=== PATIENT | male | born 1990 | race African-American/Black ===

== ENCOUNTER 2017-04-18 21:48 | Emergency (ER) | payer MEDICAID, OTHER ==
[~2017-04-18] VITALS: Ht 180.3 cm; Wt 77.1 kg
[~2017-04-18 21:48] MED LIST: NKM; PREDNISONE50 MG ORAL; TYLENOL EXTRA500 MG ORAL
[2017-04-18 22:05] VITALS: BP 122/82
[2017-04-18 22:18] LABS: BILIRUBIN, URINE NEGATIVE (NEGATIVE); GLUCOSE, URINE (UA) NEGATIVE (NEGATIVE); KETONES,URINE 1+ (NEGATIVE); LEUKOCYTE ESTERASE ,URINE 2+ (NEGATIVE); NITRITE,URINE NEGATIVE (NEGATIVE); PH,URINE 5 (4.5-8.0); PROTEIN,URINE 1+ (NEGATIVE); UROBILINOGEN,URINE 1 MG/DL (0.0-1.0)
[2017-04-18 22:20] LABS: APPEARANCE,URINE SLIGHTLY CLOUDY; COLOR,URINE YELLOW
[2017-04-18] MEDS ORDERED: KEFLEX500 MG ORAL (22:34)
[2017-04-18 22:50] VITALS: BP 120/78
--- NOTE | 2017-04-19 | Emergency Room Report ---
History of Present Illness General Chief Complaint: Male Urogenital Problems Source: Patient Present Illness HPI 26-year-old male, presenting with dysuria for 2 days. Burning on urination, frequency. Denies any penile discharge. Sexually active but states that he used protection. Denies possibility of having STD Allergies: Coded Allergies: No Known Allergies (Unverified , 02/10/14) Patient History Past Medical History: see triage record Past Surgical History: none Pertinent Family History: none Reviewed Nursing Documentation: PMH: Agreed, PSxH: Agreed Nursing Documentation-PMH Past Medical History: No Stated History Review of Systems All Other Systems: negative except mentioned in HPI Physical Exam Vital Signs Date Time Temp Pulse Resp B/P (MAP) Pulse Ox O2 Delivery O2 Flow Rate FiO2 04/18/17 21:57 97.9 66 18 128/84 96 Room Air Sp02 EP Interpretation: reviewed, normal General Appearance: normal inspection, well appearing, no apparent distress, alert, GCS 15, non-toxic Head: normocephalic, atraumatic Eyes: bilateral eye normal inspection, bilateral eye PERRL, bilateral eye EOMI ENT: normal ENT inspection, normal pharynx, normal voice, moist mucus membranes Neck: normal inspection, full range of motion, supple Respiratory: normal inspection, lungs clear, normal breath sounds, no respiratory distress, no retraction, no wheezing, speaking full sentences, chest symmetrical Cardiovascular #1: normal inspection, regular rate, rhythm, no edema, normal capillary refill Cardiovascular #2: 2+ radial (R), 2+ radial (L) Gastrointestinal: normal inspection, non tender, soft, non-distended, no guarding Genitourinary: no CVA tenderness Musculoskeletal: normal inspection, back normal, normal range of motion, non- tender Neurologic: normal inspection, alert, oriented x3, responsive, motor strength/ tone normal, sensory intact, normal gait, speech normal Psychiatric: normal inspection, judgement/insight normal, memory normal Skin: normal inspection, normal color, no rash, warm/dry, well hydrated, normal turgor Medical Decision Making Diagnostic Impression: Primary Impression: UTI (urinary tract infection) ER Course 26-year-old male with dysuria DDX: UTI / cystitis vs. pyelo vs STD Plan: UA, UCX ER course: Pt remains stable/nontoxic appearing in ED. UA positive Patient also educated that if he takes antibiotics and he is still experiencing symptoms, to see his primary care doctor for STD testing. I offered empiric antibiotics for treatment however patient declined Disposition: Patient will be discharged home with prescription of antibiotics. Strict return precautions to discussed with patient such as high fever, chills, abdominal pain, nausea or vomiting. Patient verbalized understanding. Patient instructed to follow up with primary care doctor within 3 days. Patient agrees with plan. Please note that this Emergency Department Report was dictated using Mapplasprincipal technical specialist technology software, occasionally this can lead to erroneous entry secondary to interpretation by the dictation equipment Last Vital Signs Date Time Temp Pulse Resp B/P (MAP) Pulse Ox O2 Delivery O2 Flow Rate FiO2 04/18/17 22:50 97.6 74 17 120/78 99 Room Air Disposition: HOME, SELF-CARE Condition: Stable Scripts Cephalexin* (KEFLEX*) 500 Mg Capsule 500 MG ORAL Q6H, #28 CAP 0 Refills Prov: Hudson Jimenez M.D. 04/18/17 Referrals: NOT CHOSEN IPA/,REFERRING (PCP) Patient Instructions: Urinary Tract Infection Additional Instructions: PLEASE FOLLOW UP WITH YOUR DOCTOR IN 5 DAYS Hudson Jimenez M.D. Apr 19, 2017 00:00
== END 2017-04-18 22:50 | disposition home or self-care (01) ==
LOC: EMR 22:00
DX: N39.0 Urinary tract infection, site not specified (principal)
CPT/HCPCS: 81003; 87086; 99283

== ENCOUNTER 2017-07-05 22:47 | Emergency (ER) | payer SELFPAY ==
[~2017-07-05] VITALS: Ht 180.3 cm; Wt 74.8 kg
[~2017-07-05 22:47] MED LIST changes: +KEFLEX500 MG ORAL
[2017-07-05] MEDS ORDERED: LORazepam Inj 2mg/ml 1ml IM ONE (23:45)
[2017-07-05] MEDS ORDERED: ATIVAN1 MG ORAL (23:59)
--- NOTE | 2017-07-06 | Emergency Room Report ---
History of Present Illness General Chief Complaint: General Complaint Source: Patient Present Illness HPI Is a 26-year-old male with a history of anxiety/panic attack when he was younger. He was on medication for it. He hasn't been on medication for several years now. He has been able to manage it without any problem. He said his panic attacks been on coming more frequently and especially today he had about 10 of them already. [place] numbness to his whole body. No suicidal thought homicidal thought. Denies any other drug use other than marijuana. Allergies: Coded Allergies: No Known Allergies (Unverified , 02/10/14) Patient History Past Medical History: see triage record, old chart reviewed, psych hx Past Surgical History: none Pertinent Family History: none Social History: Denies: smoking Immunizations: other Reviewed Nursing Documentation: PMH: Agreed; PSxH: Agreed Nursing Documentation-PMH Past Medical History: No Stated History Review of Systems Eye: Denies: eye pain, blurred vision ENT: Denies: ear pain, nose congestion, throat swelling Respiratory: Denies: cough, shortness of breath Cardiovascular: Denies: chest pain, palpitations Gastrointestinal: Denies: abdominal pain, diarrhea, nausea, vomiting Musculoskeletal: Denies: back pain, joint pain Skin: Denies: rash Neurological: Denies: headache, numbness Endocrine: Denies: increased thirst, increased urine Hematologic/Lymphatic: Denies: easy bruising All Other Systems: negative except mentioned in HPI Physical Exam Vital Signs Date Time Temp Pulse Resp B/P (MAP) Pulse Ox O2 Delivery O2 Flow Rate FiO2 07/05/17 22:59 98.0 74 18 149/97 100 Room Air 98.1 vitals normal Sp02 EP Interpretation: reviewed, normal General Appearance: well appearing, no apparent distress, alert Head: normocephalic, atraumatic Eyes: bilateral eye PERRL, bilateral eye EOMI ENT: hearing grossly normal, normal pharynx Neck: full range of motion, supple, no meningismus Respiratory: chest non-tender, lungs clear, normal breath sounds Cardiovascular #1: regular rate, rhythm, no murmur Gastrointestinal: normal bowel sounds, non tender, no mass, no organomegaly, no bruit, non-distended Musculoskeletal: back normal, gait/station normal, normal range of motion Psychiatric: mood/affect normal Skin: warm/dry Medical Decision Making Diagnostic Impression: Primary Impression: Generalized anxiety disorder with panic attacks ER Course Patient with panic attacks. Not suicidal homicidal. We'll refer to mental health. Last Vital Signs Date Time Temp Pulse Resp B/P (MAP) Pulse Ox O2 Delivery O2 Flow Rate FiO2 07/05/17 22:59 98.0 74 18 149/97 100 Room Air 98.1 Status: improved Disposition: HOME, SELF-CARE Condition: Stable Scripts Lorazepam* (ATIVAN*) 1 Mg Tablet 1 MG ORAL THREE TIMES A DAY, #20 TAB Prov: ATILIO TALAMANTES M.D. 07/05/17 Additional Instructions: Follow-up with mental health within 7 days. Return if symptom worsen. ATILIO TALAMANTES M.D. Jul 06, 2017 00:00
[2017-07-06 00:06] VITALS: BP 149/97
== END 2017-07-06 00:30 | disposition home or self-care (01) ==
LOC: EMR 07-06 00:26
DX: F41.1 Generalized anxiety disorder (principal); F41.0 Panic disorder [episodic paroxysmal anxiety]
CPT/HCPCS: 96372; 99283

== ENCOUNTER 2018-10-10 13:29 | Emergency (ER) | payer MEDICAID ==
[~2018-10-10] VITALS: Ht 182.9 cm; Wt 79.4 kg
[~2018-10-10 13:29] MED LIST changes: +ATIVAN1 MG ORAL
[2018-10-10 13:35] VITALS: BP 137/84
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
--- NOTE | 2018-10-10 14:04 | Diagnostic Imaging Report ---
Indication: pain in finger. trauma Findings: 3 views of the right second third fingers were obtained. No acute fractures, malalignment, erosions, or periosteal reaction are seen. Soft tissues are unremarkable. Impression: No acute findings.
--- NOTE | 2018-10-10 14:18 | NUR ---
ED Nurse Note: dressing applied as ordered by CASH APPLICATION REPRESENTATIVE STAR
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
[2018-10-10] MEDS ORDERED: AUGMENTIN 875-1 EAC1 ORAL (14:29)
[2018-10-10] MEDS ORDERED: IBU800 MG PO (14:29)
--- NOTE | 2018-10-10 14:33 | Diagnostic Imaging Report ---
Indication: Left leg pain Comparison: None Findings: Two views of the left tibia and fibula were obtained. There are healed fractures in the mid shaft of the tibia and fibula. Intramedullary ranjana and proximal and distal interlocking screws are noted. The proximal screw is fractured at the level of the ranjana. No acute fracture is identified. IMPRESSION: No acute injury identified
[2018-10-10 14:35] VITALS: BP 137/84
--- NOTE | 2018-10-10 14:35 | NUR ---
ER DISCHARGE NOTE: Patient is cleared to be discharged per AGUSTIN MCKENZIE, pt is aox4, on room air, with stable vital signs. pt was given dc and prescription instructions, pt was able to verbalize understanding, pt id band and removed without complications. pt is able to ambulate with steady gait. pt took all belongings.
== END 2018-10-10 14:35 | disposition home or self-care (01) ==
LOC: EMR 14:25
DX: S61.250A Open bite of right index finger without damage to nail, initial encounter (principal); W50.3XXA Accidental bite by another person, initial encounter; Y92.9 Unspecified place or not applicable; S80.12XA Contusion of left lower leg, initial encounter
CPT/HCPCS: 29130; 99284

== ENCOUNTER 2019-06-19 16:47 | Emergency (ER) | payer MEDICAID ==
[~2019-06-19] VITALS: Ht 185.4 cm; Wt 79.4 kg
[~2019-06-19 16:47] MED LIST changes: +AUGMENTIN 875-1 EAC1 ORAL; +IBU800 MG PO
--- NOTE | 2019-06-19 17:18 | NUR ---
ED Nurse Note: pt walked in to ED for C/O blood in stool x 3 days. denies any abd pain, n/v. pt is alert x4.
[2019-06-19 17:19] VITALS: BP 118/70
--- NOTE | 2019-06-19 17:37 | NUR ---
ED Nurse Note: blood sample collected and sent to lab .
[2019-06-19 18:12] LABS: BASOPHILS % (AUTO) 1.2 % (0.0-2.0); EOSINOPHILS % (AUTO) 1.1 % (0.0-3.0); HEMATOCRIT 49.2 % (42.0-52.0); HEMOGLOBIN 15.5 G/DL (14.2-18.0); LYMPHOCYTES % (AUTO) 40.9 % (20.0-45.0); MEAN CORPUSCULAR VOLUME 88 FL (80-99); MONOCYTES % (AUTO) 6.5 % (1.0-10.0); NEUTROPHILS % (AUTO) 50.3 % (45.0-75.0); PLATELET COUNT 190 K/UL (150-450); RED CELL DISTRIBUTION WIDTH 13.7 % (11.6-14.8); WHITE BLOOD COUNT 7.6 K/UL (4.8-10.8)
[2019-06-19 18:20] LABS: ANION GAP 9 mmol/L (5-15); BLOOD UREA NITROGEN 7 mg/dL (7-18); CALCIUM 9.3 MG/DL (8.5-10.1); CARBON DIOXIDE 28 MMOL/L (21-32); CHLORIDE 103 MMOL/L (98-107); CREATININE 1.1 MG/DL (0.55-1.30); POTASSIUM 3.7 MMOL/L (3.5-5.1); SODIUM 140 MMOL/L (136-145)
[2019-06-19 18:32] LABS: ALANINE AMINOTRANSFERASE 19 U/L (12-78); ALBUMIN 4.3 G/DL (3.4-5.0); ALBUMIN/GLOBULIN RATIO 1.3 (1.0-2.7); ALKALINE PHOSPHATASE 85 U/L (46-116); ASPARTATE AMINO TRANSFERASE 16 U/L (15-37); BILIRUBIN,TOTAL 0.3 MG/DL (0.2-1.0)
--- NOTE | 2019-06-19 18:48 | Emergency Room Report ---
History of Present Illness General Chief Complaint: General Complaint Source: Patient Present Illness HPI 28-year-old male presents to the emergency department complaining of painless bright red blood per rectum x3 days. Patient reports he noticed his blood in the toilet after he has a bowel movement. He denies constipation or diarrhea. Patient denies eating any red vegetables. Patient denies history of blood dyscrasia or anemia. Patient reports history of hemorrhoids in the past but states that he examined himself at home and did not visualize any hemorrhoids at this time. Patient denies any foreign body insertion/rectal intercourse. He denies history of colon cancer/cancers. Does report familial history of cancer but states it was not: Related. He denies significant changes of weight loss or gain unintentionally, night sweats or changes in appetite. He reports this is his first time experiencing blood in the stool. He denies abdominal pain or tenderness. Denies nausea or vomiting. Denies NSAID use. No other aggravating or relieving factors at this time. Allergies: Coded Allergies: No Known Allergies (Unverified , 02/10/14) COVID-19 Screening Contact w/high risk pt: No Recent Travel to affected area: No Experienced COVID-19 symptoms?: No Patient History Past Surgical History: none Pertinent Family History: none Reviewed Nursing Documentation: PMH: Agreed; PSxH: Agreed Nursing Documentation-PMH Past Medical History: No Stated History Review of Systems All Other Systems: negative except mentioned in HPI Physical Exam Vital Signs Date Time Temp Pulse Resp B/P (MAP) Pulse Ox O2 Delivery O2 Flow Rate FiO2 06/19/19 17:10 98.8 94 20 117/74 (88) 95 Room Air Sp02 EP Interpretation: reviewed, normal General Appearance: no apparent distress, alert, GCS 15, non-toxic Head: normocephalic, atraumatic Eyes: bilateral eye normal inspection, bilateral eye PERRL ENT: hearing grossly normal, normal voice Neck: full range of motion Respiratory: lungs clear, normal breath sounds, speaking full sentences Cardiovascular #1: regular rate, rhythm Gastrointestinal: normal bowel sounds, non tender, soft, non-distended, no guarding Rectal: heme positive stool, other - no visible hemorrhoids or tears/fissures. Genitourinary: normal inspection, no CVA tenderness Musculoskeletal: normal range of motion, gait/station normal, non-tender Neurologic: alert, motor strength/tone normal, oriented x3, sensory intact, responsive, speech normal Psychiatric: judgement/insight normal Skin: no rash, normal color, normal inspection Lymphatic: no adenopathy Medical Decision Making PA Attestation Dr. Ribeiro is my supervising Physician whom patient management has been discussed with. Diagnostic Impression: Primary Impression: Hematochezia ER Course 28-year-old male presents to the emergency department complaining of painless bright red blood per rectum x3 days. Patient reports he noticed his blood in the toilet after he has a bowel movement. He denies constipation or diarrhea. Patient denies eating any red vegetables. Patient denies history of blood dyscrasia or anemia. Patient reports history of hemorrhoids in the past but states that he examined himself at home and did not visualize any hemorrhoids at this time. Patient denies any foreign body insertion/rectal intercourse. He denies history of colon cancer/cancers. Does report familial history of cancer but states it was not: Related. He denies significant changes of weight loss or gain unintentionally, night sweats or changes in appetite. He reports this is his first time experiencing blood in the stool. He denies abdominal pain or tenderness. Denies nausea or vomiting. Denies NSAID use. No other aggravating or relieving factors at this time. Ddx considered but are not limited to constipatio , anal fissure, perianal abscess,cancer, rectal wall tear, thrombosed hemorrhoid, hemorrhoid. Vital signs: are WNL, pt. is afebrile H&PE are most consistent with hemorrhoid , secondary to straining/ constipation. bowl sounds are normo active. ORDERS: Under quite at this time ED INTERVENTIONS: - Discussed the patient's self care interventions for hemorrhoids DISCHARGE: At this time pt. is stable for d/c to home. Will provide printed patient care instructions, and any necessary prescriptions. Care plan and follow up instructions have been discussed with the patient prior to discharge. Labs Test 06/19/19 17:33 White Blood Count 7.6 K/UL (4.8-10.8) Red Blood Count 5.60 M/UL (4.70-6.10) Hemoglobin 15.5 G/DL (14.2-18.0) Hematocrit 49.2 % (42.0-52.0) Mean Corpuscular Volume 88 FL (80-99) Mean Corpuscular Hemoglobin 27.7 PG (27.0-31.0) Mean Corpuscular Hemoglobin Concent 31.5 G/DL (32.0-36.0) Red Cell Distribution Width 13.7 % (11.6-14.8) Platelet Count 190 K/UL (150-450) Mean Platelet Volume 8.7 FL (6.5-10.1) Neutrophils (%) (Auto) 50.3 % (45.0-75.0) Lymphocytes (%) (Auto) 40.9 % (20.0-45.0) Monocytes (%) (Auto) 6.5 % (1.0-10.0) Eosinophils (%) (Auto) 1.1 % (0.0-3.0) Basophils (%) (Auto) 1.2 % (0.0-2.0) Sodium Level 140 MMOL/L (136-145) Potassium Level 3.7 MMOL/L (3.5-5.1) Chloride Level 103 MMOL/L (98-107) Carbon Dioxide Level 28 MMOL/L (21-32) Anion Gap 9 mmol/L (5-15) Blood Urea Nitrogen 7 mg/dL (7-18) Creatinine 1.1 MG/DL (0.55-1.30) Estimat Glomerular Filtration Rate > 60 mL/min (>60) Glucose Level 82 MG/DL (74-106) Calcium Level 9.3 MG/DL (8.5-10.1) Total Bilirubin 0.3 MG/DL (0.2-1.0) Aspartate Amino Transf (AST/SGOT) 16 U/L (15-37) Alanine Aminotransferase (ALT/SGPT) 19 U/L (12-78) Alkaline Phosphatase 85 U/L (46-116) Total Protein 7.5 G/DL (6.4-8.2) Albumin 4.3 G/DL (3.4-5.0) Globulin 3.2 g/dL Albumin/Globulin Ratio 1.3 (1.0-2.7) Last Vital Signs Date Time Temp Pulse Resp B/P (MAP) Pulse Ox O2 Delivery O2 Flow Rate FiO2 06/19/19 17:19 88 18 Room Air 06/19/19 17:19 98.8 118/70 96 Disposition: HOME, SELF-CARE Condition: Stable Scripts Docusate Sodium* (COLACE*) 100 Mg Capsule 100 MG ORAL THREE TIMES A DAY, #30 CAP Prov: Christine Santos 06/19/19 Referrals: NON PHYSICIAN (PCP) Patient Instructions: Gastrointestinal Bleeding Additional Instructions: Take medications as directed. Follow up with a Primary Care Provider in 3-5 days, For GI Specialist follow up and possible Sigmoidoscopy to visualize site of bleeding. --Please review list of primary care clinics, if you do not already have a primary care provider Return sooner to ED if new symptoms occur, or current symptoms become worse. - Please note that this Emergency Department Report was dictated using [employer] of learning technology software, occasionally this can lead to erroneous entry secondary to interpretation by the dictation equipment. Christine Santos Jun 19, 2019 18:48
[2019-06-19 18:59] VITALS: BP 105/76
--- NOTE | 2019-06-19 18:59 | NUR ---
ED Nurse Note: pt in bed awake, no acute distress is noted. VSS as documented.
[2019-06-19] MEDS ORDERED: COLACE100 MG ORAL (19:04)
[2019-06-19 19:10] VITALS: BP 108/80
--- NOTE | 2019-06-19 19:10 | NUR ---
ER DISCHARGE NOTE: Patient is cleared to be discharged per ERMD, pt is aox4, on room air, with stable vital signs. pt was given dc and prescription instructions, pt was able to verbalize understanding, pt id band and iv site removed without complications. pt is able to ambulate with steady gait. pt took all belongings.
== END 2019-06-19 19:10 | disposition home or self-care (01) ==
LOC: EMR 17:05
DX: K92.1 Melena (principal)
CPT/HCPCS: 36415; 80053; 85025; Z7502; 99283

== ENCOUNTER 2020-03-17 10:30 | Emergency (ER) | payer MEDICAID ==
[~2020-03-17] VITALS: Ht 182.9 cm; Wt 81.6 kg
[~2020-03-17 10:30] MED LIST changes: +COLACE100 MG ORAL
[2020-03-17 10:50] VITALS: BP 125/82
--- NOTE | 2020-03-17 10:59 | NUR ---
ED Nurse Note: Pt ambulated to ED from home d/t abdominal pain on the upper region accompanied by nausea/vomiting for 2 weeks and blood in the stool onset today. Pt is AOx4, calm and cooperative to care, VSS, on RA, breathing even and unlabored, pt denies any diarrhea. placed on bed.
[2020-03-17] MEDS ORDERED: Mylanta II UD 30ml ORAL ONE (11:00)
[2020-03-17] MEDS ORDERED: Lidocaine 2% Visc 15ml soln ORAL ONE (11:00)
--- NOTE | 2020-03-17 11:38 | Diagnostic Imaging Report ---
Indication: Cough Technique: XRAY Chest 1v Comparison: None Findings: Heart size and mediastinal contours are within normal limits for AP technique. There is no focal airspace consolidation, pneumothorax or pleural effusion. Osseous structures demonstrate no acute abnormality. Impression: No radiographic evidence of acute cardiopulmonary disease.
[2020-03-17 11:43] LABS: EOSINOPHILS % (AUTO) 0.7 % (0.0-3.0); HEMATOCRIT 49.3 % (42.0-52.0); HEMOGLOBIN 17.3 G/DL (14.2-18.0); MEAN CORPUSCULAR VOLUME 85 FL (80-99); MONOCYTES % (AUTO) 5.7 % (1.0-10.0); NEUTROPHILS % (AUTO) 65.6 % (45.0-75.0); PLATELET COUNT 200 K/UL (150-450); RED BLOOD COUNT 5.83 M/UL (4.70-6.10); RED CELL DISTRIBUTION WIDTH 14.2 % (11.6-14.8); WHITE BLOOD COUNT 7.4 K/UL (4.8-10.8)
[2020-03-17 11:57] LABS: ANION GAP 5 mmol/L (5-15); BLOOD UREA NITROGEN 9 mg/dL (7-18); CALCIUM 8.8 MG/DL (8.5-10.1); CARBON DIOXIDE 28 MMOL/L (21-32); CHLORIDE 104 MMOL/L (98-107); CREATININE 1.1 MG/DL (0.55-1.30); SODIUM 137 MMOL/L (136-145)
[2020-03-17 12:01] LABS: ALANINE AMINOTRANSFERASE 31 U/L (12-78); ALBUMIN 4.1 G/DL (3.4-5.0); ALBUMIN/GLOBULIN RATIO 1.3 (1.0-2.7); ALKALINE PHOSPHATASE 91 U/L (46-116); ASPARTATE AMINO TRANSFERASE 24 U/L (15-37); BILIRUBIN,TOTAL 0.6 MG/DL (0.2-1.0)
[2020-03-17] MEDS ORDERED: FAMOTIDINE20 MG ORAL (12:38)
[2020-03-17] MEDS ORDERED: ONDANSETRON ODT4 MG BC (12:38)
[2020-03-17 12:46] VITALS: BP 121/80
--- NOTE | 2020-03-17 14:38 | Emergency Room Report ---
History of Present Illness General Chief Complaint: Abdominal Pain Source: Patient Present Illness Allergies: Coded Allergies: No Known Allergies (Unverified , 02/10/14) COVID-19 Screening Contact w/high risk pt: No Recent Travel to affected area: No Experienced COVID-19 symptoms?: No COVID-19 Testing performed CREDIT CARD CONTROL CLERK: No Nursing Documentation-[facility] Past Medical History: No Stated History Physical Exam Vital Signs Date Time Temp Pulse Resp B/P (MAP) Pulse Ox O2 Delivery O2 Flow Rate FiO2 03/17/20 10:35 98.1 95 17 125/82 (96) 99 Room Air Medical Decision Making Diagnostic Impression: Primary Impression: Gastritis Last Vital Signs Date Time Temp Pulse Resp B/P (MAP) Pulse Ox O2 Delivery O2 Flow Rate FiO2 03/17/20 12:46 98.1 78 18 121/80 100 Room Air Disposition: HOME, SELF-CARE Condition: Stable Scripts Ondansetron Odt* (ZOFRAN ODT*) 4 Mg Tab.rapdis 4 MG BC EVERY 6 HOURS PRN for Nausea & Vomiting, #10 TAB 0 Refills Prov: Odilon Kramer MD 03/17/20 Famotidine* (Pepcid 20mg tablet*) 20 Mg Tablet 20 MG ORAL DAILY for Gerd, #30 TAB 0 Refills Prov: Odilon Kramer MD 03/17/20 Referrals: Kacey Jimenez [facility] Patient Instructions: Gastritis, Adult, [id number] Odilon Kramer MD Mar 17, 2020 14:37
== END 2020-03-17 12:46 | disposition home or self-care (01) ==
LOC: EMR 11:43
DX: K29.70 Gastritis, unspecified, without bleeding (principal)
CPT/HCPCS: 36415; 71045; 80053; 83690; 85025; 96361; 96374; 96375; J2405; J7030; S0028; Z7502; 99284